=== PATIENT | male | born 1990 | race Caucasian/White ===

== ENCOUNTER 2020-03-25 17:52 | Emergency (ER) | payer MEDICAID ==
[~2020-03-25] VITALS: Ht 180.3 cm; Wt 87.0 kg
[~2020-03-25 17:52] MED LIST: ACET325T14 PO; ALPR1TAB2 PO; AMOX1TAB61 PO; ERTA1VIA IV; HYDR-3240 PO; KETO200C PO; METH500T97 PO; OXYC1TAB8 PO
--- NOTE | 2020-03-25 18:07 | NUR ---
PT BIB EMS FOR SNORTING 12 MG OF XANAX. 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 ALS0 HAS ABOUT 40 XANAX BARS. PT IS DROWSY, AND AROUSABLE. AIRWAY INTACT. RESPIRATIONS EQUAL AND UNLABORED. VSS. PT SPEECH SLURRED, ABLE TO ANSWER QUESTIONS. DENIES SI. 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 DENIES CP OR SOB.
--- NOTE | 2020-03-25 18:26 | NUR ---
PT STANDING TO URINATE. DENTAL DIRECTOR AT BEDSIDE TO ASSIST
--- NOTE | 2020-03-25 18:50 | NUR ---
RECEIVED REPORT FROM ZULEIKA MCDONNELL.
[2020-03-25 18:54] LABS: BASOPHILS # (AUTO) 0.01 x10^3/uL (0-0.1); BASOPHILS % (AUTO) 0 % (0-1); EOSINOPHILS # (AUTO) 0.21 x10^3/uL (0-0.4); EOSINOPHILS % (AUTO) 3 % (1-7); LYMPHOCYTES # (AUTO) 1.43 x10^3/uL (1-3.4); LYMPHOCYTES % (AUTO) 19 % (22-44); MD NO; MEAN CORPUSCULAR HEMOGLOBIN 31.2 pg (27.5-34.5); MEAN CORPUSCULAR VOLUME 91.6 fL (81-97); MEAN PLATELET VOLUME 9.4 fL (7.4-10.4); MONOCYTES # (AUTO) 0.42 x10^3/uL (0.2-0.8); MONOCYTES % (AUTO) 6 % (2-9); NEUTROPHILS # (AUTO) 5.43 x10^3/uL (1.8-6.8); NEUTROPHILS % (AUTO) 72 % (42-75); PLATELET COUNT 212 x10^3/uL (130-400); RED BLOOD COUNT 5.16 x10^6/uL (4.38-5.82); RED CELL DISTRIBUTION WIDTH 12.8 % (9.4-14.8)
[2020-03-25 19:03] LABS: ALANINE AMINOTRANSFERASE 21 U/L (12-78); ANION GAP 6 mmol/L (5-15); CALCIUM 8.6 mg/dL (8.5-10.1); CHLORIDE 111 mmol/L (98-107)
[2020-03-25 19:10] LABS: ALKALINE PHOSPHATASE 73 U/L (45-117); BILIRUBIN,TOTAL 0.5 mg/dL (0.2-1.0); TOTAL PROTEIN 7.1 g/dL (6.4-8.2)
[2020-03-25 19:11] LABS: SALICYLATE LEVEL < 1.7 mg/dL (2.8-20.0)
--- NOTE | 2020-03-25 19:25 | NUR ---
PATIENT VERY SLEEPY AT THIS TIME. VSS.
[2020-03-25 20:06] LABS: AMPHETAMINE SCREEN, URINE Negative (Negative); BARBITURATE SCREEN, URINE Negative (Negative); BENZODIAZEPINE SCREEN, URINE Positive (Negative); CANNABINOID SCREEN, URINE Negative (Negative); COCAINE SCREEN, URINE Negative (Negative); METHADONE SCREEN, URINE Negative (Negative); OPIATE SCREEN, URINE Positive (Negative)
--- NOTE | 2020-03-25 20:17 | NUR ---
PATIENT MORE AWAKE AT THIS TIME. ASKING IF HE CAN GO HOME NOW. UTOX RESULTED. CHART UP FOR MD TO RE-EVAL.
--- NOTE | 2020-03-25 20:40 | NUR ---
TRIAL AMBULATION PERFORMED , PATIENT PASSED. WILL WAIT FOR ANOTHER 30 MINS BEFORE DISCHARGE. OFFICER AWARE.
--- NOTE | 2020-03-25 21:09 | NUR ---
PATIENT DISCHARGED WITH INSTRUCTION GIVEN TO PATIENT AND OFFICER. VERBALIZED UNDERSTANDING.
[2020-03-25 21:10] VITALS: BP 116/64
== END 2020-03-25 21:14 | disposition home or self-care (01) ==
LOC: ED 20:32
DX: F10.129 Alcohol abuse with intoxication, unspecified (principal); T42.4X1A Poisoning by benzodiazepines, accidental (unintentional), initial encounter; R40.0 Somnolence; Y92.89 Other specified places as the place of occurrence of the external cause; Y90.9 Presence of alcohol in blood, level not specified
CPT/HCPCS: 36415; 80053; 80307; 85025; 93005; 99284